=== PATIENT | male | born 1995 | race Two or more races ===

== ENCOUNTER 2024-10-24 15:42 | Emergency (ER) | payer OTHER, SELFPAY ==
--- NOTE | ~2024-10-24 | CT_ITS ---
EXAMINATION: CT HEAD WITHOUT CONTRAST CLINICAL INFORMATION: Posterior head trauma with laceration COMPARISON: None available. TECHNIQUE: Contiguous axial imaging was performed from the skull base to vertex without intravenous administration of contrast. This CT examination was performed using dose optimization techniques as appropriate, variously including the following: *Automated exposure control *Adjustment of mA and/or kV according to patient size (this includes techniques or standardized protocols for targeted exams where dose is matched to indication/reason for exam; i.e. extremities or head) *Use of iterative reconstruction technique DLP: 731 mGY*cm FINDINGS: There is no acute ischemic change. There is no intracranial hemorrhage. There is no mass-effect or midline shift. Basal cisterns and ventricles are within normal limits for age/cerebral volume. Orbits are symmetrical and unremarkable. There is trace layering fluid in the right maxillary sinus. There are no bony abnormalities. CT/CT head/brain wo IV con IMPRESSION: No acute intracranial abnormality. Trace layering fluid in the right maxillary sinus may be posttraumatic or related to early changes of sinusitis. No fractures were identified in the visualized portions of the right maxillary sinus. Floor of the sinus was not covered by the head CT. Electronically signed by: Mao Alves MD 10/24/2024 04:55 PM EDT RP
[2024-10-24 15:59] VITALS: BP 100/47; PULSE 61; RESP 17; TEMP 36.6; O2SAT 98; BMI 22.1
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
[2024-10-24 18:22] VITALS: BP 100/47; PULSE 61; RESP 17; TEMP 36.6; O2SAT 98
[2024-10-24] MEDS: Ibuprofen 800 MG TABLET PO (18:24)
== END 2024-10-24 18:33 | disposition home or self-care (01) ==
LOC: HO.ED 18:25
PROVIDERS: Emergency Provider Emergency Medicine
DX: S01.01XA Laceration without foreign body of scalp, initial encounter (principal); R51.9 Headache, unspecified; X58.XXXA Exposure to other specified factors, initial encounter; X99.9XXA Assault by unspecified sharp object, initial encounter; Y93.9 Activity, unspecified; Y92.9 Unspecified place or not applicable; Y99.8 Other external cause status
CPT/HCPCS: 12001; 70450; 99283; 99284

== ENCOUNTER → 2024-10-24 15:59 | Outpatient (BNV) | payer OTHER, SELFPAY | PROVIDERS: Visit Provider Radiology Diagnostic Radiology | DX: S01.81XA Laceration without foreign body of other part of head, initial encounter (principal) | CPT/HCPCS: 70450 ==

== ENCOUNTER 2025-03-08 16:05 | Emergency (ER) | payer OTHER, SELFPAY ==
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
--- NOTE | ~2025-03-08 | CT_ITS ---
CLINICAL HISTORY: ?scapular fx see on XR CT left shoulder without contrast Comparison: CR - XR SHOULDER LT MIN 2V - 03/08/25 16:42 EDT Findings: Prominent vascular channel in the body of the scapula corresponding to the lucency seen on x-ray. No acute fracture or dislocation. Soft tissues are within normal limits. Visualized lungs are clear. Impression: Prominent vascular channel in the body of the scapula corresponding to the lucency seen on x-ray. No acute fracture. This document has been electronically signed by: Fernanda Holder MD on 03/08/2025 19:40:57
[2025-03-08 16:19] VITALS: BP 161/70; PULSE 82; RESP 18; TEMP 36.6; O2SAT 98; BMI 22.8
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
--- OUTSIDE RECORDS SUMMARY | 2025-03-08 19:36 | XMS_ITS | Clinical Summary ---
Author Organization [facility] Address [address] [place] [address] Care Team Providers Care Inspector And Sorter Name Role Phone Pcp, No Primary Care Provider Unavailabl e Allergies No known active allergies Immunizations Immunization Administration Dates Next Due Tdap 09/12/2024 Social History Tobacco Use Types Packs/Day Years Used Date Smoking Tobacco: Never Assessed Sex and Gender Information Value Date Recorded Sex Assigned at Male 05/29/2024 1:24 PM EST Legal Sex Male 11:26 AM EST Gender Identity Male 05/29/2024 1:24 PM EST Sexual Orientation Heterosexual (straight) 05/29 1:24 PM EST Last Filed Vital Signs Vital Sign Reading Time Taken Comments Blood Pressure 129/65 11/06/2024 3:01 PM EDT Pulse 75 11/06/2024 3:01 PM EDT Temperature 36.6 C (97.9 F) 11/06/2024 3:01 PM EDT Respiratory Rate 18 11/06/2024 3:01 PM EDT Oxygen Saturation 100% 11/06/2024 3:01 PM EDT Inhaled Oxygen Concentration - - Weight 72.6 kg (160 lb) 09/18/2024 3:47 PM EDT Height 175.3 cm (5' 9 ) 09/18/2024 3:47 PM EDT Body Mass Index 23.63 09/18/2024 3:47 PM EDT Plan of Treatment Health Maintenance Due Date Last Done Comments Hepatitis C Virus Screening 1995 Hepatitis B Vaccines (1 of 3 - 19+ 3-dose series) 09/19/2014 Influenza Vaccine 12/06/2024 COVID-19 Vaccine ( - 2023-2 5 season) 2025 DTaP/Tdap/Td Vaccines (2 - T d or Tdap) 09/12/2034 09/12/2024 HIV Screening Completed 05/29/2024 HPV Vaccines (No Doses Required) Completed Pneumococcal Vaccine: Pediat arvind (0-5 Years) and At-Risk Patients (6 to 49 Years) Aged Out No longer eligible b ased on patient's age to complete this topic Procedures Procedure Name Priority Date/Time Associated Diagnosis Comments HIV 1/2 AG/AB CMIA REFLEX TO CONFIRMATION STAT 05/29/2024 1:08 PM EST from Last 3 Months or Most Recently Relevant to Health Maintenance Results * HIV 1/2 Ag/Ab CMIA Reflex to Confirmation (05/29/2024 1:08 PM EST) HIV 1/2 Ag/Ab CMIA Nonreactive Nonreactive 05/30/2024 10:18 AM EST [facility] Comment: Results show no evidence of infection by HIV 1/2. If clinically indicated, repeat CMIA or test by nucleic acid amplification. HIV 1/2 Antigen/Antibody CMIA reflex to confirmation AND HIV-1 RNA viral load recommended in patients who are taking or have recently taken PrEP. Blood Serum specimen / Unknown 05/29/2024 1:08 PM EST 05/29/2024 2:25 PM EST us Cayla Moreno PA-C LAB BLOOD ORDERABLES Katiana junior Result [facility] [address] [place] [address], from Last 3 Months or Most Recently Relevant to Health Maintenance Care Teams Inspector And Sorter Relationship Specialty Start Date End Date Pcp, No PCP - General General Medicine 05/29/24
--- OUTSIDE RECORDS SUMMARY | 2025-03-08 19:37 | XMS_ITS | Clinical Summary ---
Author Organization [facility] Address [address] [place] [address] Care Team Providers Care Medical Field Representative Name Role Phone Unavailable Primary Care Provider Unavailabl e Allergies No known active allergies Medications Medication Sig Dispensed Refills Start Date End Date Status ibuprofen (ADVIL,MOTRIN) 600 MG tablet Take 1 tablet (600 mg total) by mouth every 6 (six) hours as needed for pain. 20 tablet 0 06/03/2018 Active Immunizations Name Administration Dates Next Due Adacel (Tdap) 06/03/2018 Social History Tobacco Use Types Packs/Day Years Used Date Smoking Tobacco: Never Smokeless Tobacco: Never Alcohol Use Standard Drinks/Week Comments Yes 0 (1 standard drink = 0.6 oz pur e alcohol) Sex and Gender Information Value Date Recorded Sex Assigned at Male 06/03/2018 2:06 PM EST Gender Identity Not on file Sexual Orientation Not on file Last Filed Vital Signs Vital Sign Reading Time Taken Comments Blood Pressure 129/67 06/03/2018 2:36 PM EST Pulse 75 06/03/2018 2:36 PM EST Temperature 36.7 C (98.1 F) 06/03/2018 2:36 PM EST Respiratory Rate 16 06/03/2018 2:36 PM EST Oxygen Saturation 97% 06/03/2018 2:36 PM EST Inhaled Oxygen Concentration - - Weight - - Height - - Body Mass Index - - Plan of Treatment Health Maintenance Due Date Last Done Comments Hepatitis B Vaccines (1 of 3 - 3-dose series) 1995 Hepatitis C Screening 1995 COVID-19 Vaccine (#1) 03/22/1996 Depression Screening 2007 Preventative Health Evaluation 09/19/2013 Influenza Vaccine (#1) 2025 DTap / Tdap / Td (2 - Td or Tdap) 06/03/2028 019 Pneumococcal Vaccine Aged Out No long er eligible based on patient's age to complete this topic RSV Ped < 20 months Aged Out No longe r eligible based on patient's age to complete this topic
[2025-03-08 22:00] VITALS: BP 112/63; PULSE 63; RESP 18; TEMP 36.6; O2SAT 97
== END 2025-03-08 22:00 | disposition home or self-care (01) ==
PROVIDERS: Emergency Provider Emergency Medicine
DX: S19.9XXA Unspecified injury of neck, initial encounter (principal); M54.2 Cervicalgia; M54.50 Low back pain, unspecified; M54.6 Pain in thoracic spine; M25.512 Pain in left shoulder; R51.9 Headache, unspecified; V43.52XA Car driver injured in collision with other type car in traffic accident, initial encounter; Y93.9 Activity, unspecified; Y92.410 Unspecified street and highway as the place of occurrence of the external cause; Y99.8 Other external cause status
CPT/HCPCS: 72072; 72125; 73030; 73200; 99283; 99284

== ENCOUNTER → 2025-03-08 16:24 | Outpatient (BNV) | payer OTHER, SELFPAY | PROVIDERS: Visit Provider Radiology Diagnostic Radiology | DX: M25.512 Pain in left shoulder (principal); M54.2 Cervicalgia; M54.6 Pain in thoracic spine; V89.2XXA Person injured in unspecified motor-vehicle accident, traffic, initial encounter | CPT/HCPCS: 72072; 72125; 73030; 73200 ==